=== PATIENT | female | born 1995 | race American Indian/Alaskan Native ===

== ENCOUNTER 2020-02-26 13:01 | Emergency (ER) | payer OTHER ==
[2020-02-26] MEDS ORDERED: IBUPROFEN 600 MG TAB PO ONE ×2 (13:51)
[2020-02-26] MEDS ORDERED: cefTRIAXone/NS 1 GM/50 ML 1 GM/50 ML BAG IV ONE (18:41)
[2020-02-26] MEDS ORDERED: SODIUM CHLORIDE 0.9% 1000 ML 1,000 ML IV ONE (18:41)
[2020-02-26 18:55] LABS: Basophils % (Auto) 0.3 % (0.0-1.8); Eosinophils % (Auto) 0.1 % (0.0-4.3); Hematocrit 39.1 % (30.3-42.9); Hemoglobin 13.7 gm/dl (10.1-14.3); Lymphocytes # (Auto) 1.9 K/mm3 (1.2-5.4); Lymphocytes % (Auto) 23.6 % (13.4-35.0); Mean Corpuscular HGB Conc 35 % (30-34); Mean Corpuscular Volume 95 fl (79-97); Monocytes # (Auto) 0.7 K/mm3 (0.0-0.8); Monocytes % (Auto) 8.9 % (0.0-7.3); Platelet Count 243 K/mm3 (140-440); Red Blood Count 4.12 M/mm3 (3.65-5.03); Red Cell Distribution Width 12.9 % (13.2-15.2)
[2020-02-26 19:01] LABS: Alanine Aminotransferase 23 units/L (7-56); Albumin 4.1 g/dL (3.9-5); BUN/Creatinine Ratio 11; Blood Urea Nitrogen 8 mg/dL (7-17); Calcium 9.3 mg/dL (8.4-10.2); Hemolysis Index 2
[2020-02-26 20:08] LABS: Bacteria,Urine 2+ /HPF (Negative); Bilirubin,Urine NEG (Negative); Blood,Urine NEG (Negative); Color,Urine Amber (Yellow); Mucus,Urine 3+ /HPF; Urobilinogen,Urine < 2.0 mg/dL (<2.0)
[2020-02-26 20:10] LABS: HCG Qualitative,Urine Negative (Negative)
--- NOTE | 2020-02-26 20:12 | Emergency Department Report ---
ED General Adult HPI - General Chief complaint: Urogenital-Female Stated complaint: POSS UTI/ODOR Time Seen by Provider: 02/26/20 18:04 Source: patient Mode of arrival: Ambulatory Limitations: No Limitations - History of Present Illness Initial comments: 24-year-old -[place] female patient presents with complaints of urinary frequency, cloudy urine, and bilateral lower back pain x2 days. She states she believes she has a UTI due to her symptoms being symptoms being similar to prior UTIs she has had in the past. She denies any fever or sweats, however she does admit to some chills and lower abdominal pain. Patient was given ibuprofen in triage and states her pain has resolved with this and states her current pain level is 0/10 in severity. She also denies any nausea/vomiting/diarrhea, vaginal discharge/dyspareunia, hematuria or prior medical history. Severity scale (0 -10): 0 - Related Data Previous Rx's Medication Instructions Recorded Last Taken Type Famotidine [Pepcid] 20 mg PO BID #30 tablet 02/25/14 Unknown Rx Hyoscyamine Subl [Levsin Sl] 0.125 mg PO Q6HR #15 tablet 02/25/14 Unknown Rx Promethazine [Phenergan] 25 mg PO Q6H PRN #20 tablet 02/25/14 Unknown Rx Ciprofloxacin HCl [Ciprofloxacin 500 mg PO Q12HR 7 Days #14 tab 02/26/20 Unknown Rx TAB] Ibuprofen [Motrin 600 MG tab] 600 mg PO Q8H PRN #15 tablet 02/26/20 Unknown Rx Allergies Allergy/AdvReac Type Severity Reaction Status Date / Time No Known Allergies Allergy Unverified 02/25/14 13:35 ED Review of Systems ROS: Stated complaint: POSS UTI/ODOR Other details as noted in HPI Constitutional: chills. denies: diaphoresis, fever, malaise, weakness ENT: denies: throat pain Respiratory: denies: cough, shortness of breath Cardiovascular: denies: chest pain Gastrointestinal: abdominal pain. denies: nausea, vomiting, diarrhea, constipation, hematemesis, melena Genitourinary: urgency, frequency. denies: hematuria, discharge, dyspareunia Musculoskeletal: back pain. denies: joint swelling, arthralgia Skin: denies: rash, change in color Hematological/Lymphatic: denies: easy bleeding, swollen glands ED Past Medical Hx - Past Medical History Previous Medical History?: No - Surgical History Past Surgical History?: Yes - Social History Smoking Status: Never Smoker Substance Use Type: None - Medications Home Medications: Home Medications Medication Instructions Recorded Confirmed Last Taken Type Famotidine [Pepcid] 20 mg PO BID #30 tablet 02/25/14 Unknown Rx Hyoscyamine Subl [Levsin Sl] 0.125 mg PO Q6HR #15 tablet 02/25/14 Unknown Rx Promethazine [Phenergan] 25 mg PO Q6H PRN #20 tablet 02/25/14 Unknown Rx Ciprofloxacin HCl [Ciprofloxacin 500 mg PO Q12HR 7 Days #14 tab 02/26/20 Unknown Rx TAB] Ibuprofen [Motrin 600 MG tab] 600 mg PO Q8H PRN #15 tablet 02/26/20 Unknown Rx ED Physical Exam - General Limitations: No Limitations General appearance: alert, in no apparent distress - Head Head exam: Present: atraumatic, normocephalic - Eye Eye exam: Present: normal appearance - ENT ENT exam: Present: mucous membranes moist - Neck Neck exam: Present: normal inspection - Respiratory Respiratory exam: Present: normal lung sounds bilaterally. Absent: respiratory distress - Cardiovascular Cardiovascular Exam: Present: regular rate, normal rhythm. Absent: systolic murmur, diastolic murmur, rubs, gallop - GI/Abdominal GI/Abdominal exam: Present: soft, normal bowel sounds. Absent: distended, tenderness, guarding, rebound, rigid - Extremities Exam Extremities exam: Present: full ROM - Back Exam Back exam: Present: full ROM. Absent: CVA tenderness (R), CVA tenderness (L), paraspinal tenderness, vertebral tenderness - Neurological Exam Neurological exam: Present: alert, oriented X3, normal gait. Absent: motor sensory deficit - Psychiatric Psychiatric exam: Present: normal affect, normal mood - Skin Skin exam: Present: warm, dry, intact, normal color. Absent: rash, cyanosis, diaphoretic, erythema, ecchymosis ED Course Vital Signs 02/26/20 13:51 Temperature 101.4 F H Pulse Rate 114 H Respiratory 20 Rate Blood Pressure 121/73 O2 Sat by Pulse 95 Oximetry ED Medical Decision Making - Lab Data Result diagrams: 02/26/20 18:26 02/26/20 18:26 Lab Results 02/26/20 02/26/20 02/26/20 Range/Units 18:26 18:26 18:26 WBC 8.2 (4.5-11.0) K/mm3 RBC 4.12 (3.65-5.03) M/mm3 Hgb 13.7 (10.1-14.3) gm/dl Hct 39.1 (30.3-42.9) % MCV 95 (79-97) fl MCH 33 H (28-32) pg MCHC 35 H (30-34) % RDW 12.9 L (13.2-15.2) % Plt Count 243 (140-440) K/mm3 Lymph % (Auto) 23.6 (13.4-35.0) % [place] % (Auto) 8.9 H (0.0-7.3) % Eos % (Auto) 0.1 (0.0-4.3) % Baso % (Auto) 0.3 (0.0-1.8) % Lymph # (Auto) 1.9 (1.2-5.4) K/mm3 [place] # (Auto) 0.7 (0.0-0.8) K/mm3 Eos # (Auto) 0.0 (0.0-0.4) K/mm3 Baso # (Auto) 0.0 (0.0-0.1) K/mm3 Seg Neutrophils % 67.1 (40.0-70.0) % Seg Neutrophils # 5.5 (1.8-7.7) K/mm3 Sodium 139 (137-145) mmol/L Potassium 3.3 L (3.6-5.0) mmol/L Chloride 100.2 (98-107) mmol/L Carbon Dioxide 24 (22-30) mmol/L Anion Gap 18 mmol/L BUN 8 (7-17) mg/dL Creatinine 0.7 (0.6-1.2) mg/dL Estimated GFR > 60 ml/min BUN/Creatinine Ratio 11 % Glucose 90 (65-100) mg/dL Lactic Acid 1.00 (0.7-2.0) mmol/L Calcium 9.3 (8.4-10.2) mg/dL Total Bilirubin 1.50 H (0.1-1.2) mg/dL AST 20 (5-40) units/L ALT 23 (7-56) units/L Alkaline Phosphatase 83 (35-129) units/L Total Protein 7.0 (6.3-8.2) g/dL Albumin 4.1 (3.9-5) g/dL Albumin/Globulin Ratio 1.4 % Urine Color (Yellow) Urine Turbidity (Clear) Urine pH (5.0-7.0) Ur Specific [place] (1.003-1.030) Urine Protein (Negative) mg/dL Urine Glucose (UA) (Negative) mg/dL Urine Ketones (Negative) mg/dL Urine Blood (Negative) Urine Nitrite (Negative) Urine Bilirubin (Negative) Urine Urobilinogen (<2.0) mg/dL Ur Leukocyte Esterase (Negative) Urine WBC (Auto) (0.0-6.0) /HPF Urine RBC (Auto) (0.0-6.0) /HPF U Epithel Cells (Auto) (0-13.0) /HPF Urine Bacteria (Auto) (Negative) /HPF Urine Mucus /HPF Urine HCG, Qual (Negative) 02/26/20 Range/Units 19:00 WBC (4.5-11.0) K/mm3 RBC (3.65-5.03) M/mm3 Hgb (10.1-14.3) gm/dl Hct (30.3-42.9) % MCV (79-97) fl MCH (28-32) pg MCHC (30-34) % RDW (13.2-15.2) % Plt Count (140-440) K/mm3 Lymph % (Auto) (13.4-35.0) % [place] % (Auto) (0.0-7.3) % Eos % (Auto) (0.0-4.3) % Baso % (Auto) (0.0-1.8) % Lymph # (Auto) (1.2-5.4) K/mm3 [place] # (Auto) (0.0-0.8) K/mm3 Eos # (Auto) (0.0-0.4) K/mm3 Baso # (Auto) (0.0-0.1) K/mm3 Seg Neutrophils % (40.0-70.0) % Seg Neutrophils # (1.8-7.7) K/mm3 Sodium (137-145) mmol/L Potassium (3.6-5.0) mmol/L Chloride (98-107) mmol/L Carbon Dioxide (22-30) mmol/L Anion Gap mmol/L BUN (7-17) mg/dL Creatinine (0.6-1.2) mg/dL Estimated GFR ml/min BUN/Creatinine Ratio % Glucose (65-100) mg/dL Lactic Acid (0.7-2.0) mmol/L Calcium (8.4-10.2) mg/dL Total Bilirubin (0.1-1.2) mg/dL AST (5-40) units/L ALT (7-56) units/L Alkaline Phosphatase (35-129) units/L Total Protein (6.3-8.2) g/dL Albumin (3.9-5) g/dL Albumin/Globulin Ratio % Urine Color [place] (Yellow) Urine Turbidity Slightly-cloudy (Clear) Urine pH 5.0 (5.0-7.0) Ur Specific [place] 1.029 (1.003-1.030) Urine Protein 100 mg/dl (Negative) mg/dL Urine Glucose (UA) Neg (Negative) mg/dL Urine Ketones 20 (Negative) mg/dL Urine Blood Neg (Negative) Urine Nitrite Pos (Negative) Urine Bilirubin Neg (Negative) Urine Urobilinogen < 2.0 (<2.0) mg/dL Ur Leukocyte Esterase Sm (Negative) Urine WBC (Auto) 33.0 H (0.0-6.0) /HPF Urine RBC (Auto) 2.0 (0.0-6.0) /HPF U Epithel Cells (Auto) 2.0 (0-13.0) /HPF Urine Bacteria (Auto) 2+ (Negative) /HPF Urine Mucus 3+ /HPF Urine HCG, Qual Negative (Negative) - Medical Decision Making 24-year-old -[place] female patient presents with complaints of urinary frequency, cloudy urine, and bilateral lower back pain x2 days. She states she believes she has a UTI due to her symptoms being symptoms being similar to prior UTIs she has had in the past. She denies any fever or sweats, however she does admit to some chills and lower abdominal pain. Patient was given ibuprofen in triage and states her pain has resolved with this and states her current pain level is 0/10 in severity. She also denies any nausea/vomiting/diarrhea, vaginal discharge/dyspareunia, hematuria or prior medical history. UA shows 33 WBCs and positive nitrites. Patient was initially tachycardic at 114 with a fever of 101.4. Vitals are normal on repeat after ibuprofen and fluids. Patient also given IV Rocephin 1 g. She is well-appearing and stable for discharge home. Treatment for complicated UTI/pyelonephritis given. Patient to follow-up with PCP within 3 days. Strict return precautions were discussed in detail with patient who verbalizes understanding. Critical care attestation.: If time is entered above; I have spent that time in minutes in the direct care of this critically ill patient, excluding procedure time. ED Disposition Clinical Impression: Pyelonephritis Disposition: DC-01 TO HOME OR SELFCARE Is pt being admited?: No Condition: Stable Instructions: Acute Pyelonephritis (ED) Prescriptions: Ciprofloxacin HCl [Ciprofloxacin TAB] 500 mg PO Q12HR 7 Days #14 tab Ibuprofen [Motrin 600 MG tab] 600 mg PO Q8H PRN #15 tablet PRN Reason: Pain/fever Referrals: PRIMARY CARE, [Primary Care Provider] - 2-3 Days
[2020-02-26 20:13] VITALS: BP 103/79
== END 2020-02-26 20:58 | disposition home or self-care (01) ==
LOC: ED 13:01
DX: N12 Tubulo-interstitial nephritis, not specified as acute or chronic (principal); Z79.899 Other long term (current) drug therapy
CPT/HCPCS: 36415; 80053; 81001; 81025; 82140; 85025; 87040; 87086; 96365; 99283; J0696; J7030

== ENCOUNTER 2021-05-16 16:36 | Emergency (ER) | payer SELFPAY | END 2021-05-16 17:42 | disposition left against medical advice (07) | LOC: ED 16:36 | DX: R07.9 Chest pain, unspecified (principal); Z53.21 Procedure and treatment not carried out due to patient leaving prior to being seen by health care provider ==